=== PATIENT | male | born 1940 | race Native Hawaiian/Other Pacific Islander ===

== ENCOUNTER 2017-01-13 14:31 | Outpatient (CLI) | payer OTHER ==
[2017-01-13] MEDS ORDERED: METOPROLOL25 M1 OR (15:30)
[2017-01-13] MEDS ORDERED: SIMV40TA57 (15:31)
[2017-01-13] MEDS ORDERED: OMEPRAZOLE20 M1 OR ×2 (15:32→15:40)
[2017-01-13] MEDS ORDERED: LEVO-T88 MCG PO (15:32)
[2017-01-13] MEDS ORDERED: LORA0.5T17 PO (15:33)
[2017-01-13] MEDS ORDERED: HYDR5TAB9 PO (15:35)
[2017-01-13] MEDS ORDERED: SENNA-TABS8.6 MG OR (15:35)
[2017-01-13] MEDS ORDERED: VENLAFAXINE37.5 ER PO (15:36)
[2017-01-13] MEDS ORDERED: VENLAFAXINE75 M2 PO (15:37)
[2017-01-13] MEDS ORDERED: FURO20TA67 PO (15:42)
[2017-01-13] MEDS ORDERED: POTA20TA4 PO (15:43)
[2017-01-13] MEDS ORDERED: LISI20TA11 PO (15:44)
[2017-01-13] MEDS ORDERED: CITALOPRAM40 MG PO (15:45)
[2017-01-13] MEDS ORDERED: TEMA30CA18 PO (15:46)
[2017-01-13] MEDS ORDERED: MORPHINE SUL15 MG OR (15:47)
[2017-01-13] MEDS ORDERED: NEURONTIN 100M100 MG OR (15:48)
== END 2017-01-13 14:44 | disposition short-term general hospital (02) ==
LOC: AMB 14:31
DX: M25.511 Pain in right shoulder (principal); R53.1 Weakness
CPT/HCPCS: A0425; A0427

== ENCOUNTER 2017-01-13 14:45 | Inpatient (IN) | payer OTHER ==
[~2017-01-13] VITALS: Ht 185.4 cm; Wt 105.0 kg
[2017-01-13 15:00] VITALS: BP 142/61; TEMP 97.6
[2017-01-13] MEDS ORDERED: METOPROLOL25 M1 OR (15:30)
[2017-01-13] MEDS ORDERED: SIMV40TA57 (15:31)
[2017-01-13] MEDS ORDERED: LEVO-T88 MCG PO (15:32)
[2017-01-13] MEDS ORDERED: OMEPRAZOLE20 M1 OR ×2 (15:32→15:40)
[2017-01-13] MEDS ORDERED: LORA0.5T17 PO (15:33)
[2017-01-13] MEDS ORDERED: HYDR5TAB9 PO (15:35)
[2017-01-13] MEDS ORDERED: SENNA-TABS8.6 MG OR (15:35)
[2017-01-13] MEDS ORDERED: VENLAFAXINE37.5 ER PO (15:36)
[2017-01-13] MEDS ORDERED: VENLAFAXINE75 M2 PO (15:37)
[2017-01-13] MEDS ORDERED: FURO20TA67 PO (15:42)
[2017-01-13] MEDS ORDERED: POTA20TA4 PO (15:43)
[2017-01-13] MEDS ORDERED: LISI20TA11 PO (15:44)
[2017-01-13] MEDS ORDERED: CITALOPRAM40 MG PO (15:45)
[2017-01-13 15:46] LABS: PLATELET COUNT 157 K/uL (142-355)
[2017-01-13] MEDS ORDERED: TEMA30CA18 PO (15:46)
[2017-01-13] MEDS ORDERED: MORPHINE SUL15 MG OR (15:47)
[2017-01-13] MEDS ORDERED: NEURONTIN 100M100 MG OR (15:48)
[2017-01-13 15:56] LABS: POTASSIUM 5.1 mmol/L (3.6-5.2)
[2017-01-13 16:14] LABS: PARTIAL THROMBOPLASTIN TIME 22.9 SECONDS (24.5-33.6)
[2017-01-13 16:54] VITALS: BP 139/62
[2017-01-13 19:18] VITALS: BP 104/51; TEMP 98.4
[2017-01-14] VITALS (7 sets, daily range): BP systolic 103–161; BP diastolic 47–89; TEMP 97.8–98.7; Ht 185.4 cm; Wt 105.0 kg
[2017-01-14 09:05] LABS: PLATELET COUNT 146 K/uL (142-355)
[2017-01-14 09:19] LABS: POTASSIUM 4.5 mmol/L (3.6-5.2); SODIUM 141 mmol/L (136-145)
--- NOTE | 2017-01-14 09:28 | NUR ---
PATIENT RIGHT LUNG IS CLEAR AND LITTLE WHEEZE ON LEFT. PATIENT HAS A UPPER AIRWAY WHEEZE AND STATES HE ONLY HAS 1/2 HEART BECAUSE HE HAS HAD 4 HEART ATTACKS.
[2017-01-15] VITALS: BP 129/61; TEMP 98.7
[2017-01-15 04:00] VITALS: BP 143/81; TEMP 98.9
[2017-01-15 08:00] VITALS: BP 141/65; TEMP 97.8
[2017-01-15 09:02] LABS: PLATELET COUNT 126 K/uL (142-355)
[2017-01-15 09:11] LABS: SODIUM 140 mmol/L (136-145)
[2017-01-15 12:06] VITALS: BP 127/75; TEMP 97.6
[2017-01-15 16:15] VITALS: BP 160/76; TEMP 97.6
[2017-01-15 20:00] VITALS: BP 139/67; TEMP 98.3
[2017-01-16] VITALS (7 sets, daily range): BP systolic 141–170; BP diastolic 58–81; TEMP 97.6–98.9
[2017-01-16 06:10] LABS: PLATELET COUNT 136 K/uL (142-355)
[2017-01-16 06:19] LABS: SODIUM 140 mmol/L (136-145)
[2017-01-17 04:00] VITALS: BP 133/62; TEMP 98.9
[2017-01-17 06:14] LABS: PLATELET COUNT 118 K/uL (142-355)
[2017-01-17 06:24] LABS: POTASSIUM 3.6 mmol/L (3.6-5.2); SODIUM 138 mmol/L (136-145)
[2017-01-17 07:58] VITALS: BP 119/71; TEMP 98
[2017-01-17 12:00] VITALS: BP 138/63; TEMP 98.7
[2017-01-17 16:00] VITALS: BP 143/77; TEMP 98
[2017-01-17 20:00] VITALS: BP 167/82; TEMP 98
--- NOTE | 2017-01-17 20:15 | NUR ---
Received pt resting in bed. Denies pain at this time. Assessment completed. No distress noted. Bed in low position. Call light within reach. Will continue to monitor.
[2017-01-18] VITALS: BP 162/90; TEMP 97.6
[2017-01-18 04:00] VITALS: BP 162/74; TEMP 97.5
[2017-01-18 05:16] LABS: PLATELET COUNT 140 K/uL (142-355)
[2017-01-18 05:26] LABS: POTASSIUM 4.6 mmol/L (3.6-5.2); SODIUM 136 mmol/L (136-145)
[2017-01-18 08:00] VITALS: BP 172/82; TEMP 98.3
[2017-01-18 12:00] VITALS: BP 150/92; TEMP 97.8
--- NOTE | 2017-01-18 13:15 | NUR ---
SPOKE WITH ALEJANDRO PERKINS RN REGARDING TRANSPORT HOME. ORDERS RECEIVED TO D/C HOME
--- NOTE | 2017-01-18 14:26 | NUR ---
CALLED ALEJANDRO PERKINS RN TO INFORM HER PT READY TO TRANSPORT HOME.
--- NOTE | 2017-01-18 16:40 | NUR ---
DUE TO SEVERE WEATHER WARNINGS. IV D/C'D L AC 20G AND R FA 22G D/C'D CATH TIP INTACT.
== END 2017-01-18 16:51 | disposition home or self-care (01) | DRG 558 ==
LOC: ED 14:45 → MED/SURG 16:38
PROVIDERS: Emergency Medicine; ADMIT Emergency Medicine
DX: M62.82 Rhabdomyolysis (principal); R55 Syncope and collapse; J44.9 Chronic obstructive pulmonary disease, unspecified; I25.10 Atherosclerotic heart disease of native coronary artery without angina pectoris; Z72.0 Tobacco use; E83.51 Hypocalcemia; E83.42 Hypomagnesemia; E03.8 Other specified hypothyroidism; E78.4 Other hyperlipidemia; I10 Essential (primary) hypertension; G89.29 Other chronic pain
CPT/HCPCS: 36415; 36591; 80048; 80053; 80320; 80329; 81000; 82550; 82553; 83735; 84443; 84484; 85027; 85610; 85730; 93005; 94640; 94664; 94760; 96360; 96372; 99284; J1650; J3475

== ENCOUNTER 2019-02-14 14:14 | Outpatient (CLI) | payer OTHER ==
[~2019-02-14 14:14] MED LIST: CITALOPRAM40 MG PO; FURO20TA67 PO; HYDR5TAB9 PO; LEVO-T88 MCG PO; LISI20TA11 PO; LORA0.5T17 PO; METOPROLOL25 M1 OR; MORPHINE SUL15 MG OR; NEURONTIN 100M100 MG OR; OMEPRAZOLE20 M1 OR; POTA20TA4 PO; SENNA-TABS8.6 MG OR; SIMV40TA57; TEMA30CA18 PO; VENLAFAXINE37.5 ER PO; VENLAFAXINE75 M2 PO
== END 2019-02-14 23:39 | disposition home or self-care (01) ==
LOC: RAD 14:14
DX: M54.5 Low back pain (principal)

== ENCOUNTER 2020-03-04 12:00 | Emergency (ER) | payer OTHER ==
[~2020-03-04] VITALS: Ht 182.9 cm; Wt 100.7 kg
[2020-03-04 12:00] VITALS: TEMP 98.7
[2020-03-04] MEDS ORDERED: CARV3.12 PO (12:32)
[2020-03-04] MEDS ORDERED: FLUOXETINE40 MG PO (12:32)
[2020-03-04] MEDS ORDERED: LIPITOR10 MG PO (12:33)
[2020-03-04] MEDS ORDERED: GNP MELATONIN MA5 MG PO (12:33)
[2020-03-04] MEDS ORDERED: NEURONTIN 100M100 MG PO (12:34)
[2020-03-04 12:52] LABS: PLATELET COUNT 167 K/uL (142-355)
[2020-03-04 13:02] LABS: SODIUM 139 mmol/L (136-145)
[2020-03-04 17:30] VITALS: BP 93/36
== END 2020-03-04 18:02 | disposition short-term general hospital (02) ==
LOC: ED 12:04
PROVIDERS: Family Medicine
DX: N17.9 Acute kidney failure, unspecified (principal); I95.9 Hypotension, unspecified; R06.02 Shortness of breath
CPT/HCPCS: 80053; 82550; 83880; 84484; 85027; 85610; 85730; 93005; 96360; 96361; 99284